=== PATIENT | female | born 1950 | race Caucasian/White ===

== ENCOUNTER 2021-05-07 09:17 | Emergency (ER) | payer MEDICARE, BC, SELFPAY ==
[2021-05-07 09:25] VITALS: BP 164/90; PULSE 59; RESP 18; TEMP 36.8; O2SAT 97; BMI 36.6
--- NOTE | 2021-05-07 09:29 | ED_ITS ---
HPI - Chest Pain General Chief Complaint: Chest Pain Stated Complaint: chest pain Time Seen by Provider: 05/07/21 09:28 Source: patient Mode of arrival: Ambulatory Limitations: no limitations Limitations: no limitations History of Present Illness HPI narrative: This is a 71-year-old female who comes to the emergency department with complaint of chest pain that is been present for 3 days patient states it has been constant persistent substernal wrapping around to the back bilaterally at t he same level. Patient has difficulty describing if anything makes it worse or better but heating pad was helpful. When they stop suddenly in the car this also made it feel better. Patient has can really not answer whether not movement makes it any better or worse. Exertion does not seem to worsen it. She denies fevers or chills. No cold, cough or congestion. She denies any shortness of breath or pain with deep inspiration. No nausea or vomiting. No swelling of her extremities. Denies any diarrhea constipation. No urinary symptoms. She denies any similar symptoms in the past. She took Tylenol 1000 mg and ibuprofen 600 mg at 9:00 a.m. this morning and has had some improvement. Patient does not have any prior history of MIs or strokes, she is on medication for hypertension, dyslipidemia, hypothyroidism and anxiety. She had hysterectomy. No prior cardiac stents she had a stress test 4-5 years ago which she states was negative in telling him. She notes her bile father had a heart attack in his 60s. No tobacco, alcohol or illicit. Dr. Gaetano balderas is her primary care and Zahra Valdez. She is fully vaccinated and boosted for coronavirus since March 2020. Related Data Previous Rx's Medication Instructions Recorded diazepam 5 mg tablet (Valium) 5 mg PO BEDTIME PRN #5 tab 05/07/21 lidocaine 5 % topical patch 1 patch TOPICAL DAILY PRN #15 ea 05/07/21 Allergies Allergy/AdvReac Type Severity Reaction Status Date / Time codeine AdvReac Verified 05/07/21 09:34 Review of Systems Review of Systems ROS Unobtainable: All systems reviewed & are unremarkable except as noted in HPI and below Exam Narrative Exam Narrative: GENERAL: Alert and oriented x three, elderly female in mild distress. HEENT: Head normocephalic, atraumatic, EOMI, pupils reactive, face symmetric, moist mucous membranes NECK: Supple, full range of motion CARDIOVASCULAR: Regular rate and rhythm without murmurs, rubs or gallops. Patient has reproducible chest pain with palpation of the sternum. No ecchymosis, bruising or skin changes. RESPIRATORY: Breath sounds equal bilaterally, no wheezes rales or rhonchi. ABDOMEN: Soft, nontender. Normoactive bowel sounds all 4 quadrants. No guarding or rebound, rigidity, no mass : No CVA tenderness BACK: No cervical, lumbar vertebral point tenderness. Patient does have te nderness over the T6-7 region with pain radiating around to the front bilaterally. No rash or skin changes. Slight muscle tightness. Normal range of motion. Muscle strength is 5/5 in upper and lower extremities. EXTREMITIES: Normal range of motion, no clubbing or edema. Neurovascularly intact NEUROLOGICAL: Cranial nerves II through XII grossly intact. Moving all extremities SKIN: Warm, dry, no petechiae, no rashes or lesions. Initial Vital Signs Initial Vital Signs: Vital Signs Temperature 98.2 F 05/07/21 09:25 Pulse Rate 59 L 05/07/21 09:25 Respiratory Rate 18 05/07/21 09:25 Blood Pressure 164/90 H 05/07/21 09:25 Pulse Oximetry 97 05/07/21 09:25 Scores HEART Score Heart Score history: Slightly Suspicious Heart Score EKG: Non-Specific repolarization disturbance Heart Score Age: > or = 65 years old Heart Score risk factors: 1-2 risk factors Heart Score troponin: < or = to normal limit Heart Score Total: 4 Course Orders Ordered: ED Orders 05/07/21 09:27 EKG-12 Lead Routine 05/07/21 09:30 Complete Blood Count AUTO DIFF Stat Comprehensive Metabolic Panel Stat Lipase Stat Magnesium Stat Troponin & CK Cardiac Panel Stat 05/07/21 09:35 XR chest 1V Stat Vital Signs Vital signs: Vital Signs - 8 hr 05/07/21 09:25 05/07/21 09:30 05/07/21 10:00 Temperature 98.2 F Pulse Rate 59 L 58 L 50 L Respiratory Rate 18 17 20 Blood Pressure 164/90 H 164/90 H 145/80 H Pulse Oximetry 97 96 97 05/07/21 10:30 05/07/21 10:31 Temperature Pulse Rate 53 L 52 L Respiratory Rate 22 18 Blood Pressure 148/85 H Pulse Oximetry 96 96 MDM - Chest Pain Lab Data Result diagrams: 05/07/21 09:30 05/07/21 09:30 Labs: Lab Results 05/07/21 05/07/21 Range/Units 09:30 09:30 WBC 8.1 (4.5-11.0) X10^3/uL RBC 4.63 (4.0-5.2) X10^6/uL Hgb 11.6 L (12.0-16.0) g/dL Hct 36.5 (36-46) % MCV 78.9 L (80-100) fL MCH 25.1 L (26-34) PG MCHC 31.8 (30-36) % RDW 16.9 H (11.6-14.8) % Plt Count 223 (150-400) X10^3/uL Neut % (Auto) 59.5 (50-75) % Lymph % (Auto) 31.3 (25-40) % [place] % (Auto) 4.6 (3-14) % Eos % (Auto) 3.1 (2-4) % Baso % (Auto) 1.5 (0-2) % Neut # (Auto) 4800 (0888-1367) /uL Lymph # (Auto) 2500 (8710-3521) /uL [place] # (Auto) 400 (0-900) /uL Eos # (Auto) 200 (0-450) /uL Baso # (Auto) 100 (0-100) /uL Sodium 139 (137-145) mmol/L Potassium 4.1 (3.4-5.1) mmol/L Chloride 105 (98-107) mmol/L Carbon Dioxide 27 (22-32) mmol/L BUN 19 H (7-17) mg/dL Creatinine 0.94 (0.52-1.04) mg/dL Estimated GFR 58.7 L (>60) mL/min BUN/Creatinine Ratio 20.2 (6-22) Glucose 105 (80-110) mg/dL Calcium 9.4 (8.4-10.2) mg/dL Magnesium 2.0 (1.6-2.3) mg/dL Total Bilirubin 0.5 (0.2-1.3) mg/dL AST 32 (14-36) IU/L ALT 13 (<35) IU/L Alkaline Phosphatase 98 (38-126) U/L Total Creatine Kinase 95 (30-135) U/L CK-MB (CK-2) TNP CK-MB (CK-2) Rel Index TNP Troponin I < 0.012 (0.01-0.034) ng/mL Total Protein 7.9 (6.3-8.2) g/dL Albumin 4.6 (3.5-5.0) g/dL Globulin 3.3 (1.7-4.1) g/dL Albumin/Globulin Ratio 1.4 (1.0-2.8) Lipase 176 (23-300) U/L Imaging Data Chest x-ray: Radiologist's Impression: [address] [address] XRay Report Signed Patient: Mary Mora MR#: [id number] : 1950 Acct:[id number] Age/Sex: 71 / F Date of Service: 05/07/21 Loc: ED Accession Number: [id number] ?? Procedure: XR chest 1V Ordering Provider: Alyse Ward D.O. PROCEDURE:? XR CHEST 1V ? INDICATIONS:? chest pain ? TECHNIQUE:? One view of the chest was acquired.? ? COMPARISON:? None. ? FINDINGS:? ? Surgical changes and devices:? None.? ? Lungs and pleura:? Lungs are clear.? No pleural effusions or pneumothorax.? ? Mediastinum:? Mediastinal contours appear normal.? Heart size is normal.? ? Bones and chest wall:? No suspicious bony lesions.? Overlying soft tissues appear unremarkable.? ? IMPRESSION:? No evidence acute pulmonary process. ? ? ? Dictated by: Larry Melendez M.D. on 05/07/2021 at 8:53 ? ? Approved by: Larry Melendez M.D. on 05/07/2021 at 8:54?? ECG Data Attestation: I personally reviewed and interpreted this ECG as follows: Prior ECG tracings: not available for review Interpretation: Sinus bradycardia rate of 57, MO interval 156 QRS 88 QTC 424. Patient has T- waves inverted V2 through the 3. Q-wave in 3 and AVF with no elevation appreciated or ST depression noted. No priors for comparison. MDM Narrative Medical decision making narrative: This is a 71-year-old female with 3 days of chest pain that radiates from her back bilaterally around to the anterior sternum which is reproducible. Patient does have inverted T-waves in lateral leads but no priors for comparison. She h as had chest pain constantly which does not seem to have any clear exacerbating or alleviating factors other than heating pad. Patient does have cardiac risk factors. Chest x-ray shows no acute changes. Labs show anemia which is microcytic. CBC shows elevated BUN, normal creatinine with negative troponin. No changes to LFTs or lipase. Patient has reproducible chest pain on exam with 3 days of persistent constant symptoms with no exacerbating factors making angina or cardiac cause less likely, my suspicion for PE or other pulmonary causes is also low I suspect this is more musculoskeletal. Discussed with patient plan for pain control, follow-up with primary care. Patient does note some spasm in her back particularly in the muscles so discussed doing a muscle relaxer in the evening as she has had a lot of difficulty with sleep. Lidocaine patch locally. Patient and family feel comfortable with this plan. Discussed return precautions. Discharge Plan Departure Patient Disposition: Home Clinical Impression: Acute bilateral thoracic back pain, Chest pain Instructions: DI for Atypical Chest Pain Activity Restrictions/Additional Instructions: Follow-up with your physician for recheck if your symptoms are not improving over the week. They may obtain additional images of your back if your symptoms continue to persist. Continue home medications as prescribed. You may continue to take ibuprofen up to 600 mg every 6 hours and/or Tylenol up to a 1000 mg every 8 hours. You may find a lidocaine patch on your back may be helpful. You can use this daily. If may be helpful to use a small dose of muscle relaxer prior to bed. This medication can make you sleepy do not drive, perform hazardous activities or make major decisions while taking it. [facility] Please return for fevers, lightheadedness or passing out, changing or new chest pain, shortness of breath, persistent vomiting, diaphoresis or sweatiness, new swelling in her extremities or other new or concerning symptoms. Prescriptions: New lidocaine 5 % adhesive patch,medicated 1 patch topical DAILY PRN (Reason: pain) Qty: 15 0RF Rx Instructions: leave on most painful area for up to 12 hrs diazepam [Valium] 5 mg tablet 5 mg PO BEDTIME PRN (Reason: muscle spasm) Qty: 5 0RF Referrals: Akash Fernández MD [Primary Care Provider] -
[2021-05-07 09:30] VITALS: BP 164/90; PULSE 58; RESP 17; O2SAT 96
--- NOTE | 2021-05-07 09:35 | DI.RAD.S_ITS ---
PROCEDURE: XR CHEST 1V INDICATIONS: chest pain TECHNIQUE: One view of the chest was acquired. COMPARISON: None. FINDINGS: Surgical changes and devices: None. Lungs and pleura: Lungs are clear. No pleural effusions or pneumothorax. Mediastinum: Mediastinal contours appear normal. Heart size is normal. Bones and chest wall: No suspicious bony lesions. Overlying soft tissues appear unremarkable. IMPRESSION: No evidence acute pulmonary process. Dictated by: Larry Melendez M.D. on 05/07/2021 at 8:53 Approved by: Larry Melendez M.D. on 05/07/2021 at 8:54
[2021-05-07 09:41] LABS: Add Manual Diff / Slide Review NO; Basophils Absolute Auto 100 /uL (0-100); Basophils Percent Auto 1.5 % (0-2); Eosinophils Absolute Auto 200 /uL (0-450); Eosinophils Percent Auto 3.1 % (2-4); Hematocrit 36.5 % (36-46); Hemoglobin 11.6 g/dL (12.0-16.0); Lymphocytes Absolute Auto 2500 /uL (1100-4500); Lymphocytes Percent Auto 31.3 % (25-40); Mean Corpuscular HGB Conc 31.8 % (30-36); Mean Corpuscular Hemoglobin 25.1 PG (26-34); Mean Corpuscular Volume 78.9 fL (80-100); Monocytes Absolute Auto 400 /uL (0-900); Monocytes Percent Auto 4.6 % (3-14); Neutrophils Absolute Auto 4800 /uL (1500-7000); Neutrophils Percent Auto 59.5 % (50-75); Platelet Count 223 X10^3/uL (150-400); Red Blood Cell Count 4.63 X10^6/uL (4.0-5.2); Red Cell Distribution Width 16.9 % (11.6-14.8); White Blood Cell Count 8.1 X10^3/uL (4.5-11.0)
[2021-05-07 10:00] VITALS: BP 145/80; PULSE 50; RESP 20; O2SAT 97
[2021-05-07 10:00] LABS: Alanine Aminotransferase 13 IU/L (<35); Albumin 4.6 g/dL (3.5-5.0); Albumin Globulin Ratio 1.4 (1.0-2.8); Alkaline Phosphatase 98 U/L (38-126); Aspartate Aminotransferase 32 IU/L (14-36); BUN Creatinine Ratio 20.2 (6-22); Bilirubin Total 0.5 mg/dL (0.2-1.3); Blood Urea Nitrogen 19 mg/dL (7-17); Calcium 9.4 mg/dL (8.4-10.2); Carbon Dioxide 27 mmol/L (22-32); Chloride 105 mmol/L (98-107); Creatine Kinase 95 U/L (30-135); Estimated Glomerular Filt Rate 58.7 mL/min (>60); Globulin 3.3 g/dL (1.7-4.1); Glucose 105 mg/dL (80-110); HEMOLYSIS < 15 (0-50); Lipase 176 U/L (23-300); Potassium 4.1 mmol/L (3.4-5.1); Sodium 139 mmol/L (137-145); Total Protein 7.9 g/dL (6.3-8.2)
[2021-05-07 10:11] LABS: Troponin I < 0.012 ng/mL (0.01-0.034)
[2021-05-07 10:30] VITALS: PULSE 53; RESP 22; O2SAT 96
[2021-05-07 10:31] VITALS: BP 148/85; PULSE 52; RESP 18; O2SAT 96
[2021-05-07 11:00] VITALS: BP 135/78; PULSE 51; RESP 15; O2SAT 96
== END 2021-05-07 11:13 | disposition home or self-care (01) ==
PROVIDERS: Emergency Provider Emergency Medicine; PCP Family Medicine
DX: R07.9 Chest pain, unspecified (principal); M54.6 Pain in thoracic spine
CPT/HCPCS: 36415; 71045; 80053; 82550; 83690; 83735; 84484; 85025; 93005; 99284

== ENCOUNTER 2021-08-10 14:34 | Emergency (ER) | payer MEDICARE, BC, SELFPAY ==
[2021-08-10] VITALS (9 sets, daily range): BP systolic 110–140; BP diastolic 62–79; PULSE 60–86; RESP 9–24; TEMP 36.8; O2SAT 93–98; BMI 34.5
--- NOTE | 2021-08-10 15:26 | DI.RAD.S_ITS ---
PROCEDURE: XR CHEST 1V INDICATIONS: chest pain TECHNIQUE: One view of the chest was acquired. COMPARISON: [facility], CR, XR CHEST 1V, 05/07/2021, 9:36. FINDINGS: Surgical changes and devices: None. Lungs and pleura: Lungs are clear. No pleural effusions or pneumothorax. Mediastinum: Mediastinal contours appear normal. Heart size is normal. Bones and chest wall: No suspicious bony lesions. Overlying soft tissues appear unremarkable. IMPRESSION: No acute cardiopulmonary pathology. Dictated by: John sAif M.D. on 08/10/2021 at 16:16 Approved by: John Asif M.D. on 08/10/2021 at 16:16
--- NOTE | 2021-08-10 15:30 | ED.CHESTPAIN ---
HPI - Chest Pain General Chief Complaint: Chest Pain Stated Complaint: Sharp pain in back/chest/stomach Time Seen by Provider: 08/10/21 14:48 Source: patient Mode of arrival: Ambulatory Limitations: no limitations History of Present Illness HPI narrative: Patient is a 71-year-old female presents today with ongoing left-sided chest pain and abdominal pain. She says it started in March. She was seen evaluated here in May who had chest pain workup, she has followed up with her primary care provider however she is frustrated that she does not feel any better. She points to pain in her chest in her left upper abdomen. She says food makes it worse sometimes. Sometimes she feels like her stomach gets a to be a hard rock. She has no nausea or vomiting. She is able to eat without any problem except that it causes pain in her stomach. She has no shortness of breath palpitations. She is just tired of feeling this way and says that it is not normal. She would like some answers today Related Data Previous Rx's Medication Instructions Recorded diazepam 5 mg tablet (Valium) 5 mg PO BEDTIME PRN muscle spasm 05/07/21 #5 tabs lidocaine 5 % topical patch 1 patch topical DAILY PRN pain #15 05/07/21 ea omeprazole 20 mg capsule,delayed 40 mg PO DAILY #30 caps 08/10/21 release Allergies Allergy/AdvReac Type Severity Reaction Status Date / Time codeine AdvReac Verified 08/10/21 14:47 Review of Systems Review of Systems Narrative: GENERAL: Denies chills, fatigue, malaise, fever, sweats, travel HEENT: Denies sinus pain, ear pain, sore throat, difficulty swallowing, neck pain RESPIRATORY: Denies dyspnea, cough, wheezing, hemoptysis, sputum. CARDIOVASCULAR: See HPI GASTROINTESTINAL: See HPI : Denies dysuria, frequency, incontinence, hematuria, urinary retention, flank pain. MUSCULOSKELETAL: Denies weakness, joint pain, or bony pain SKIN: No rash, no erythema, no pruritus NEUROLOGIC: Denies weakness, dizziness, headache, numbness, change in speech, confusion PSYCHIATRIC: No concerning psychosocial issues. 12 point review of systems is negative except for those stated above and HPI Patient History Social History Smoking Status: Never smoker Smoking Status: Never smoker alcohol intake frequency: 0-2 drinks per day Substance Use Type: does not use Exam Initial Vital Signs Initial Vital Signs: Vital Signs Temperature 98.3 F 08/10/21 14:40 Pulse Rate 86 08/10/21 14:40 Respiratory Rate 18 08/10/21 14:40 Pulse Oximetry 96 08/10/21 14:40 Oxygen Delivery Method 08/10/21 14:40 GENERAL: Alert well-appearing 71-year-old female and in no acute distress. HEENT: Head atraumatic,EOMI, pupils reactive, face symmetric, moist mucous membranes CARDIOVASCULAR: Regular rate and rhythm without murmurs, rubs or gallops. RESPIRATORY: Breath sounds equal bilaterally, no wheezes rales or rhonchi. ABDOMEN: Soft, nontender. Normoactive bowel sounds all 4 quadrants. No guarding or rebound. EXTREMITIES: Normal range of motion, no clubbing or edema. Neurovascularly intact NEUROLOGICAL: Alert and oriented x4.Normal gait and speech. SKIN: Warm, dry, no laceration, no petechiae, no rashes or lesions. Course Orders Ordered: ED Orders 08/10/21 14:47 Complete Blood Count AUTO DIFF Stat Comprehensive Metabolic Panel Stat Lipase Stat Magnesium Stat Troponin & CK Cardiac Panel Stat 08/10/21 15:26 XR chest 1V Stat Vital Signs Vital signs: Vital Signs - 8 hr 08/10/21 14:40 08/10/21 14:44 08/10/21 14:44 Temperature 98.3 F Pulse Rate 86 85 Respiratory Rate 18 24 Blood Pressure 135/73 Pulse Oximetry 96 96 Oxygen Delivery Method Room Air 08/10/21 15:00 08/10/21 15:01 08/10/21 15:01 Temperature Pulse Rate 71 68 Respiratory Rate 17 9 L Blood Pressure 110/62 Pulse Oximetry 93 94 Oxygen Delivery Method 08/10/21 15:30 08/10/21 15:30 08/10/21 16:00 Temperature Pulse Rate 65 Respiratory Rate 22 Blood Pressure 114/79 126/72 Pulse Oximetry 96 Oxygen Delivery Method 08/10/21 16:00 08/10/21 16:30 08/10/21 16:30 Temperature Pulse Rate 61 60 Respiratory Rate 16 13 Blood Pressure 127/70 Pulse Oximetry 96 97 Oxygen Delivery Method 08/10/21 17:00 08/10/21 17:00 08/10/21 17:30 Temperature Pulse Rate 63 Respiratory Rate 13 Blood Pressure 122/70 140/72 Pulse Oximetry 97 Oxygen Delivery Method 08/10/21 17:30 Temperature Pulse Rate 64 Respiratory Rate 16 Blood Pressure Pulse Oximetry 98 Oxygen Delivery Method MDM - Chest Pain Lab Data Result diagrams: 08/10/21 14:47 08/10/21 14:47 Labs: Lab Results 08/10/21 08/10/21 Range/Units 14:47 14:47 WBC 12.1 H (4.5-11.0) X10^3/uL RBC 4.84 (4.0-5.2) X10^6/uL Hgb 12.3 (12.0-16.0) g/dL Hct 38.7 (36-46) % MCV 80.0 (80-100) fL MCH 25.5 L (26-34) PG MCHC 31.9 (30-36) % RDW 16.3 H (11.6-14.8) % Plt Count 277 (150-400) X10^3/uL Neut % (Auto) 65.2 (50-75) % Lymph % (Auto) 26.5 (25-40) % [place] % (Auto) 4.4 (3-14) % Eos % (Auto) 2.8 (2-4) % Baso % (Auto) 1.1 (0-2) % Neut # (Auto) 7900 H (9950-9840) /uL Lymph # (Auto) 3200 (2561-2033) /uL [place] # (Auto) 500 (0-900) /uL Eos # (Auto) 300 (0-450) /uL Baso # (Auto) 100 (0-100) /uL Sodium 137 (137-145) mmol/L Potassium 3.8 (3.4-5.1) mmol/L Chloride 103 (98-107) mmol/L Carbon Dioxide 28 (22-32) mmol/L BUN 15 (7-17) mg/dL Creatinine 0.99 (0.52-1.04) mg/dL Estimated GFR > 60 (>60) mL/min BUN/Creatinine Ratio 15.2 (6-22) Glucose 162 H (80-110) mg/dL Calcium 9.5 (8.4-10.2) mg/dL Magnesium 2.2 (1.6-2.3) mg/dL Total Bilirubin 0.5 (0.2-1.3) mg/dL AST 28 (14-36) IU/L ALT 16 (<35) IU/L Alkaline Phosphatase 110 (38-126) U/L Total Creatine Kinase 36 (30-135) U/L CK-MB (CK-2) TNP CK-MB (CK-2) Rel Index TNP Troponin I < 0.012 (0.01-0.034) ng/mL Total Protein 7.6 (6.3-8.2) g/dL Albumin 4.3 (3.5-5.0) g/dL Globulin 3.3 (1.7-4.1) g/dL Albumin/Globulin Ratio 1.3 (1.0-2.8) Lipase 120 (23-300) U/L Imaging Data Chest x-ray: Radiologist's Impression: Mary Mora MR#: [id number] : 1950 Acct:[id number] Age/Sex: 71 / F Date of Service: 08/10/21 Loc: ED Accession Number: [id number] ?? Procedure: XR chest 1V Ordering Provider: Arianna Hung D.O. PROCEDURE:? XR CHEST 1V ? INDICATIONS:? chest pain ? TECHNIQUE:? One view of the chest was acquired.? ? COMPARISON:? [facility], , XR CHEST 1V, 05/07/2021, 9:36. ? FINDINGS:? ? Surgical changes and devices:? None.? ? Lungs and pleura:? Lungs are clear.? No pleural effusions or pneumothorax.? ? Mediastinum:? Mediastinal contours appear normal.? Heart size is normal.? ? Bones and chest wall:? No suspicious bony lesions.? Overlying soft tissues appear unremarkable.? ? IMPRESSION:? No acute cardiopulmonary pathology. ? ? Dictated by: John Asif M.D. on 08/10/2021 at 16:16? ECG Data Interpretation: Normal sinus rhythm rate 75 WI interval 138 QRS [address] changes previously seen inverted T-waves have now resolved MDM Narrative Medical decision making narrative: Patient has had ongoing pain since March. It is not any worse today. Workup in the emergency department is negative. Symptoms sound somewhat related to possible ulcer. She denies taking any ibuprofen or NSAIDs. She says she only take Tylenol. Will start her on a trial course of omeprazole and she can follow up with her primary care provider Discharge Plan Departure Patient Disposition: Home Clinical Impression: Atypical chest pain, Gastric ulcer Instructions: DI for Gastric Ulcer Activity Restrictions/Additional Instructions: *You have been diagnosed with atypical chest pain, possible gastric ulcer *What to do: At this time workup in the emergency department is negative. Please see her primary care provider he may need an EGD and further workup to help figure out what is causing her pain and discomfort *Continue to take medications as directed Omeprazole 40 mg once a day take 30 minutes prior to bigges meal --> SENT TO [place] *Follow up with your primary care provider in 2-3 days or call [phone] *Return to ER if you should have increased pain fever vomiting chest or any new, worsening or concerning symptoms Prescriptions: New omeprazole 20 mg capsule,delayed release(DR/EC) 40 mg PO DAILY Qty: 30 0RF No Action lidocaine 5 % adhesive patch,medicated 1 patch topical DAILY PRN (Reason: pain) Qty: 15 0RF Rx Instructions: leave on most painful area for up to 12 hrs diazepam [Valium] 5 mg tablet 5 mg PO BEDTIME PRN (Reason: muscle spasm) Qty: 5 0RF Referrals: Akash Fernández MD [Primary Care Provider] - Visit Report Forms: Patient Portal/API
[2021-08-10 15:44] LABS: Add Manual Diff / Slide Review NO; Basophils Absolute Auto 100 /uL (0-100); Basophils Percent Auto 1.1 % (0-2); Eosinophils Absolute Auto 300 /uL (0-450); Eosinophils Percent Auto 2.8 % (2-4); Hematocrit 38.7 % (36-46); Hemoglobin 12.3 g/dL (12.0-16.0); Lymphocytes Absolute Auto 3200 /uL (1100-4500); Lymphocytes Percent Auto 26.5 % (25-40); Mean Corpuscular HGB Conc 31.9 % (30-36); Mean Corpuscular Hemoglobin 25.5 PG (26-34); Monocytes Absolute Auto 500 /uL (0-900); Monocytes Percent Auto 4.4 % (3-14); Neutrophils Absolute Auto 7900 /uL (1500-7000); Neutrophils Percent Auto 65.2 % (50-75); Platelet Count 277 X10^3/uL (150-400); Red Blood Cell Count 4.84 X10^6/uL (4.0-5.2); Red Cell Distribution Width 16.3 % (11.6-14.8); White Blood Cell Count 12.1 X10^3/uL (4.5-11.0)
[2021-08-10 15:51] LABS: Alanine Aminotransferase 16 IU/L (<35); Albumin 4.3 g/dL (3.5-5.0); Albumin Globulin Ratio 1.3 (1.0-2.8); Alkaline Phosphatase 110 U/L (38-126); Aspartate Aminotransferase 28 IU/L (14-36); BUN Creatinine Ratio 15.2 (6-22); Bilirubin Total 0.5 mg/dL (0.2-1.3); Blood Urea Nitrogen 15 mg/dL (7-17); Calcium 9.5 mg/dL (8.4-10.2); Carbon Dioxide 28 mmol/L (22-32); Chloride 103 mmol/L (98-107); Creatine Kinase 36 U/L (30-135); Estimated Glomerular Filt Rate > 60 mL/min (>60); Globulin 3.3 g/dL (1.7-4.1); Glucose 162 mg/dL (80-110); HEMOLYSIS < 15 (0-50); Lipase 120 U/L (23-300); Magnesium 2.2 mg/dL (1.6-2.3); Potassium 3.8 mmol/L (3.4-5.1); Sodium 137 mmol/L (137-145); Total Protein 7.6 g/dL (6.3-8.2)
[2021-08-10 16:02] LABS: Troponin I < 0.012 ng/mL (0.01-0.034)
== END 2021-08-10 17:49 | disposition home or self-care (01) ==
PROVIDERS: Emergency Provider Emergency Medicine; PCP Family Medicine
DX: R07.89 Other chest pain (principal); K25.9 Gastric ulcer, unspecified as acute or chronic, without hemorrhage or perforation; R10.12 Left upper quadrant pain
CPT/HCPCS: 36415; 71045; 80053; 82550; 83690; 83735; 84484; 85025; 93005; 93010; 99284

== ENCOUNTER → 2021-10-12 13:03 | Outpatient (CLI) | payer MEDICARE, BC, SELFPAY ==
--- NOTE | 2021-10-12 | DI.RAD.S_ITS ---
PROCEDURE: XR SHOULDER LT MIN 2V INDICATIONS: LEFT SHOULDER PAIN TECHNIQUE: 3 views of the shoulder were acquired. COMPARISON: [facility], CR, XR CHEST 1V, 08/10/2021, 15:53. [facility], CR, XR CHEST 1V, 05/07/2021, 9:36. FINDINGS: Bones: No fractures or dislocations. No suspicious bony lesions. Visualized ribs appear intact. Mild osteoarthritic degenerative changes noted in the left acromioclavicular joint. Bone island in the proximal humerus which is stable compared to prior chest radiograph. Soft tissues: No suspicious soft tissue calcifications. IMPRESSION: Mild acromioclavicular joint osteoarthritis. No fracture. No acute osseous lesion. If symptoms and/or clinical suspicion for pathology persists, further assessment with repeat radiographs (7-10 days) or advanced imaging (e.g. CT, MRI or bone scan) should be considered. Dictated by: Venecia Santos MD, PhD on 10/12/2021 at 15:41 Approved by: Venecia Santos MD, PhD on 10/12/2021 at 15:43
== END ==
PROVIDERS: PCP Internal Medicine; Referring Provider Internal Medicine; Visit Provider Internal Medicine
DX: M19.012 Primary osteoarthritis, left shoulder (principal); M25.512 Pain in left shoulder; G89.29 Other chronic pain
CPT/HCPCS: 73030

== ENCOUNTER → 2022-04-09 11:49 | Outpatient (CLI) | payer MEDICARE, BC, SELFPAY ==
--- NOTE | 2022-04-09 | DI.MRI.S_ITS ---
PROCEDURE: MR SHOULDER LT WO CON INDICATIONS: adhesive capsulitis of right shoulder TECHNIQUE: Noncontrast oblique coronal T2 fast spin echo with fat saturation, oblique sagittal T1 spin echo and T2 fast spin echo with fat saturation, axial T1 spin echo and T2 fast spin echo with fat saturation through the shoulder. COMPARISON: None. FINDINGS: Image quality: Excellent. Rotator cuff: Low-grade articular and bursal surface partial thickness tear involving distal supraspinatus at its insertion on the humeral head is seen extending to musculotendinous junction. Distal infraspinatus tendinosis is seen. Distal subscapularis tendon is intact. No full-thickness rotator cuff tendon rupture. Sagittal images demonstrate mild supraspinatus muscle atrophy. Bones and bursae: No bone marrow contusions or fractures. [id number] acromioclavicular joint osteoarthritic changes are seen with joint space narrowing, subchondral sclerosis and downward osteophyte formation depressing the musculotendinous junction of supraspinatus. Small amount of subacromial subdeltoid bursal fluid is seen. No gross loose bodies. Capsule and soft tissues: Signal abnormality and contour irregularity involving superior anterior labrum at 12 to 1 o'clock position is seen suggestive of superior anterior labral tear. Slight thickening of the inferior glenohumeral ligament is seen. The long head of the biceps tendon demonstrates normal location and morphology. The rotator interval appears normal, without fibrosis. The coracohumeral ligament is mildly thickened. IMPRESSION: 1. Low-grade articular and bursal surface partial thickness tear involving distal supraspinatus extending to musculotendinous junction. Distal infraspinatus tendinosis. No full-thickness rotator cuff tendon rupture. Mild supraspinatus muscle atrophy. 2. [id number] acromioclavicular joint osteoarthritis. No fracture or dislocation. No gross intra-articular loose bodies. Small subacromial subdeltoid bursal fluid. 3. Suggestion of subtle superior anterior labral tear at 12 to 1 o'clock position. 4. No significant fibrosis is noted within rotator interval. Mildly thickened coracoid humeral ligament and inferior glenohumeral ligament, early adhesive capsulitis cannot be excluded. Dictated by: John Asif M.D. on 04/09/2022 at 14:00 Approved by: John Asif M.D. on 04/09/2022 at 14:05
== END ==
PROVIDERS: PCP Internal Medicine; Referring Provider Orthopaedic Surgery; Visit Provider Orthopaedic Surgery
DX: M75.112 Incomplete rotator cuff tear or rupture of left shoulder, not specified as traumatic (principal); M19.012 Primary osteoarthritis, left shoulder
CPT/HCPCS: 73221

== ENCOUNTER 2023-11-24 13:07 | Emergency (ER) | payer MEDICARE, BC, SELFPAY ==
[2023-11-24] VITALS (14 sets, daily range): BP systolic 154–198; BP diastolic 80–91; PULSE 51–63; RESP 12–31; TEMP 36.1; O2SAT 95–97
--- NOTE | 2023-11-24 13:09 | DI.RAD.S_ITS ---
PROCEDURE: XR CHEST 1V INDICATIONS: Chest pain TECHNIQUE: One view of the chest was acquired. COMPARISON: [facility], CR, XR CHEST 1V, 08/10/2021, 15:53. FINDINGS: Surgical changes and devices: None. Lungs and pleura: Lungs are clear. No pleural effusions or pneumothorax. Mediastinum: Mediastinal contours appear normal. Heart size is normal. Bones and chest wall: No suspicious bony lesions. Overlying soft tissues appear unremarkable. IMPRESSION: No acute cardiopulmonary abnormality is seen. Dictated by: Zain Huber M.D. on 11/24/2023 at 12:48 Approved by: Zain Huber M.D. on 11/24/2023 at 12:52
--- NOTE | 2023-11-24 13:09 | EKG_ITS ---
[address] [address] Test Date: 2023-11-24 Pat Name: Mary Mora Department: [facility] Room: Gender: Female [employer]: KIRA : 1950 Requested By: Order Number: [id number] Reading MD: Deep Franklin Measurements Intervals Dorena Rate: 53 P: -5 WV: 146 QRS: -24 QRSD: 86 T: 63 QT: 444 QTc: 416 Interpretive Statements Sinus bradycardia Nonspecific T wave abnormality Electronically Signed On 11-24-2023 16:07:30 PDT by Deep Franklin
[2023-11-24 13:20] LABS: Add Manual Diff / Slide Review NO; Basophils Absolute Auto 100 /uL (0-100); Basophils Percent Auto 1.2 % (0-2); Eosinophils Absolute Auto 300 /uL (0-450); Eosinophils Percent Auto 2.9 % (2-4); Hemoglobin 11.5 g/dL (12.0-16.0); Lymphocytes Absolute Auto 3000 /uL (1100-4500); Lymphocytes Percent Auto 26.2 % (25-40); Mean Corpuscular HGB Conc 31.1 % (30-36); Mean Corpuscular Hemoglobin 21.7 PG (26-34); Mean Corpuscular Volume 69.7 fL (80-100); Monocytes Absolute Auto 600 /uL (0-900); Monocytes Percent Auto 5.3 % (3-14); Neutrophils Absolute Auto 7300 /uL (1500-7000); Neutrophils Percent Auto 64.4 % (50-75); Platelet Count 294 X10^3/uL (150-400); Red Blood Cell Count 5.31 X10^6/uL (4.0-5.2); Red Cell Distribution Width 19.2 % (11.6-14.8); White Blood Cell Count 11.3 X10^3/uL (4.5-11.0)
[2023-11-24 13:31] LABS: Alanine Aminotransferase 14 IU/L (<35); Albumin 4.3 g/dL (3.5-5.0); Albumin Globulin Ratio 1.4 (1.0-2.8); Alkaline Phosphatase 107 U/L (38-126); Aspartate Aminotransferase 29 IU/L (14-36); BUN Creatinine Ratio 12.6 (6-22); Bilirubin Total 0.5 mg/dL (0.2-1.3); Blood Urea Nitrogen 11 mg/dL (7-17); Calcium 9.4 mg/dL (8.4-10.2); Carbon Dioxide 24 mmol/L (22-32); Chloride 106 mmol/L (98-107); Creatine Kinase 54 U/L (30-135); Estimated Glomerular Filt Rate > 60 mL/min (>60); Glucose 117 mg/dL (80-110); HEMOLYSIS < 15 (0-50); Lipase 1409 U/L (23-300); Potassium 4.3 mmol/L (3.4-5.1); Sodium 136 mmol/L (137-145); Total Protein 7.3 g/dL (6.3-8.2)
[2023-11-24 13:43] LABS: Troponin I < 0.012 ng/mL (0.01-0.034)
--- NOTE | 2023-11-24 13:49 | ED_ITS ---
HPI - Chest Pain General Chief Complaint: Chest Pain Stated Complaint: CP Time Seen by Provider: 11/24/23 13:08 Source: family Mode of arrival: Ambulatory Limitations: other (Alzheimer's dementia) History of Present Illness HPI narrative: Patient is a 73-year-old female. Has a history of Alzheimer's dementia. Has had her baseline mental status per family he was at bedside. At [facility] today they stated that she suddenly clutched her chest and said something about having chest pain. Unsure as to how long the symptoms lasted but the event occurred approximately 2-1/2 hours ago. Here in the ER the patient states she was not having any chest pain or shortness of breath or abdominal pain. She was having lower extremity edema which family states is not new but potentially has been worsening over the past several weeks/months. No prior history coronary artery disease. She does have quite a bit of history of anxiety issues. No reported cough. No fevers. No interventions prior to arrival. She arrived by private vehicle. Related Data Home Medications Medication Instructions Recorded Confirmed donepezil 10 mg tablet 20 mg PO DAILY 11/24/23 11/24/23 duloxetine 30 mg capsule,delayed 60 mg PO DAILY 11/24/23 11/24/23 release levothyroxine 150 mcg tablet 150 mcg PO DAILY 11/24/23 11/24/23 memantine 10 mg tablet 10 mg PO BID 11/24/23 11/24/23 quetiapine 25 mg tablet mg PO 11/24/23 risperidone 2 mg tablet mg PO 11/24/23 11/24/23 Previous Rx's Medication Instructions Recorded diazepam 5 mg tablet (Valium) 5 mg PO BEDTIME PRN muscle spasm 05/07/21 #5 tabs lidocaine 5 % topical patch 1 patch topical DAILY PRN pain #15 05/07/21 ea omeprazole 20 mg capsule,delayed 40 mg (2 x 20 mg) PO DAILY #30 caps 08/10/21 release Allergies Allergy/AdvReac Type Severity Reaction Status Date / Time codeine AdvReac Verified 08/10/21 14:47 Review of Systems Review of Systems Narrative: See HPI, provided by family Patient History Social History Smoking Status: Never smoker Smoking Status: Never smoker alcohol intake frequency: 0-2 drinks per day Substance Use Type: does not use Exam Initial Vital Signs Initial Vital Signs: Vital Signs Temperature 97.0 F L 11/24/23 13:12 Pulse Rate 54 L 11/24/23 13:12 Respiratory Rate 16 11/24/23 13:12 Blood Pressure 154/80 H 11/24/23 13:12 Pulse Oximetry 97 11/24/23 13:12 Oxygen Delivery Method Room Air 11/24/23 13:12 Const General: cooperative, comfortable and No ill appearing HENMT Head: normal to inspection and normocephalic Resp Effort & Inspection: normal respiratory effort Auscultation: clear to auscultation bilaterally Cardio Rate: bradycardic Rhythm: regular rhythm GI Inspection: normal to inspection Skin General: no rashes or lesions noted Neuro General: patient alert, patient awake and moves all extremities Extrem General: edema Course Orders Ordered: ED Orders 11/24/23 13:09 XR chest 1V Stat EKG-12 Lead Stat 11/24/23 13:11 Complete Blood Count AUTO DIFF Stat Comprehensive Metabolic Panel Stat Lipase Stat Troponin & CK Cardiac Panel Stat 11/24/23 13:35 Urine Microscopic Stat 11/24/23 15:16 Troponin & CK Cardiac Panel Stat Vital Signs Vital signs: Vital Signs - 8 hr 11/24/23 13:12 Temperature 97.0 F L Pulse Rate 54 L Respiratory Rate 16 Blood Pressure 154/80 H Pulse Oximetry 97 Oxygen Delivery Method Room Air MDM - Chest Pain Lab Data Attestation: I reviewed the patient's lab results. 11/24/23 13:11 11/24/23 13:11 Labs: Lab Results 11/24/23 11/24/23 11/24/23 Range/Units 13:11 13:35 15:16 WBC 11.3 H (4.5-11.0) X10^3/uL RBC 5.31 H (4.0-5.2) X10^6/uL Hgb 11.5 L (12.0-16.0) g/dL Hct 37.0 (36-46) % MCV 69.7 L (80-100) fL MCH 21.7 L (26-34) PG MCHC 31.1 (30-36) % RDW 19.2 H (11.6-14.8) % Plt Count 294 (150-400) X10^3/uL Neut % (Auto) 64.4 (50-75) % Lymph % (Auto) 26.2 (25-40) % [place] % (Auto) 5.3 (3-14) % Eos % (Auto) 2.9 (2-4) % Baso % (Auto) 1.2 (0-2) % Neut # (Auto) 7300 H (9846-6486) /uL Lymph # (Auto) 3000 (5093-1628) /uL [place] # (Auto) 600 (0-900) /uL Eos # (Auto) 300 (0-450) /uL Baso # (Auto) 100 (0-100) /uL RBC Morphology See below Anisocytosis 2+ H Microcytosis 1+ H Ovalocytes 1+ H Sodium 136 L (137-145) mmol/L Potassium 4.3 (3.4-5.1) mmol/L Chloride 106 (98-107) mmol/L Carbon Dioxide 24 (22-32) mmol/L BUN 11 (7-17) mg/dL Creatinine 0.87 (0.52-1.04) mg/dL Estimated GFR > 60 (>60) mL/min BUN/Creatinine Ratio 12.6 (6-22) Glucose 117 H (80-110) mg/dL Calcium 9.4 (8.4-10.2) mg/dL Total Bilirubin 0.5 (0.2-1.3) mg/dL AST 29 (14-36) IU/L ALT 14 (<35) IU/L Alkaline Phosphatase 107 (38-126) U/L Total Creatine Kinase 54 53 (30-135) U/L Troponin I < 0.012 < 0.012 (0.01-0.034) ng/mL Total Protein 7.3 (6.3-8.2) g/dL Albumin 4.3 (3.5-5.0) g/dL Globulin 3.0 (1.7-4.1) g/dL Albumin/Globulin Ratio 1.4 (1.0-2.8) Lipase 1409 H (23-300) U/L Urine RBC 0-1/hpf (0-5/HPF) Urine WBC 1-5/hpf (0-5/HPF) Ur Squamous Epith Cells 0-1 /hpf (0-5/HPF) Urine Bacteria Few (2-10) H (None) Ur Culture Indicated? Cult not indicated Vol Urine Centrifuged 10ml (spun) Urine Dip Bedside Urine Glucose Negative Bedside Urine Bilirubin - Negative Bedside Urine Ketone - Negative Urine Specific [place] [employer] 1.015 Bedside Urine Occult Blood - Negative Bedside Urine pH 6.0 Bedside Urine Protein - Negative Bedside Urine Urobilinogen - Negative Bedside Urine Nitrite - Negative Bedside Urine Leukocytes + 70 Esterase Imaging Data Chest x-ray: Radiologist's Impression: PROCEDURE: XR CHEST 1V INDICATIONS: Chest pain TECHNIQUE: One view of the chest was acquired. COMPARISON: [facility], , XR CHEST 1V, 08/10/2021, 15:53. FINDINGS: Surgical changes and devices: None. Lungs and pleura: Lungs are clear. No pleural effusions or pneumothorax. Mediastinum: Mediastinal contours appear normal. Heart size is normal. Bones and chest wall: No suspicious bony lesions. Overlying soft tissues appear unremarkable. IMPRESSION: No acute cardiopulmonary abnormality is seen. ECG Data Attestation: I personally reviewed and interpreted this ECG as follows: Interpretation: Sinus bradycardia Ventricular rate of [address] T wave changes MDM Narrative Medical decision making narrative: Patient has a history of dementia. Is unable to provide any HPI given her history of dementia. Seems to be asymptomatic since arrival here in the ER. Nonspecific changes in the EKG. Troponins are negative x2. Chest x-ray is unremarkable. Is tolerating oral intake. Unsure the exact etiology of the patient's symptoms but given the resolution of symptoms, history of dementia, 2- troponins I will be to discharge patient home with return precautions. Family is at bedside for these discussions. They expressed understanding and agreement with plan. Discharge Plan Departure Patient Disposition: Home Clinical Impression: Atypical chest pain Instructions: DI for Atypical Chest Pain Activity Restrictions/Additional Instructions: I recommend that Mary continue to take home medications as directed. Recommend her primary care doctor be notified of her visit here today. He was returned to the emergency department for new or worsening symptoms. Prescriptions: No Action quetiapine 25 mg tablet PO donepezil 10 mg tablet 20 mg PO DAILY risperidone 2 mg tablet PO levothyroxine 150 mcg tablet 150 mcg PO DAILY memantine 10 mg tablet 10 mg PO BID duloxetine 30 mg capsule,delayed release(DR/EC) 60 mg PO DAILY lidocaine 5 % adhesive patch,medicated 1 patch topical DAILY PRN (Reason: pain) Qty: 15 0RF Rx Instructions: leave on most painful area for up to 12 hrs diazepam [Valium] 5 mg tablet 5 mg PO BEDTIME PRN (Reason: muscle spasm) Qty: 5 0RF omeprazole 20 mg capsule,delayed release(DR/EC) 40 mg PO DAILY Qty: 30 0RF Referrals: Austen Khanna MD [Primary Care Provider] - Stand Alone Forms: Patient Portal/API
[2023-11-24 13:51] LABS: Anisocytosis 2+
[2023-11-24 13:54] LABS: Microcytosis 1+; Ovalocytes 1+
[2023-11-24 14:00] LABS: Bacteria Urine Few (2-10); Culture Indicated Urine Cult Not Indicated; RBC Urine 0-1/HPF (0-5/HPF); Squamous Epithelial Cell Urine 0-1 /HPF (0-5/HPF); Urine Volume 10mL (spun); WBC Urine 1-5/HPF (0-5/HPF)
[2023-11-24 15:34] LABS: Creatine Kinase 53 U/L (30-135)
[2023-11-24 15:47] LABS: Troponin I < 0.012 ng/mL (0.01-0.034)
== END 2023-11-24 16:35 | disposition home or self-care (01) ==
PROVIDERS: Emergency Provider Emergency Medicine; PCP Internal Medicine
DX: R07.89 Other chest pain (principal); R60.0 Localized edema
CPT/HCPCS: 36415; 71045; 80053; 81003; 81015; 82550; 83690; 84484; 85025; 93005; 99283; 99284